=== PATIENT | female | born 1980 | race Caucasian/White ===

== ENCOUNTER 2018-06-20 16:38 | Emergency (ER) | payer BC ==
[2018-06-20 17:03] VITALS: TEMP 98.8; BMI 29.0
[2018-06-20] MEDS ORDERED: KETOROLAC TROMETHAMINE 30 MG/1 ML VIAL IVPUSH ONE (17:13)
[2018-06-20] MEDS ORDERED: PANTOPRAZOLE SODIUM 40 MG in SODIUM CHLORIDE 100 ML IVPB ONE (17:13)
--- NOTE | 2018-06-20 17:21 | PDOC ---
History of Present Illness - General Chief Complaint: Chest Pain Stated Complaint: PCP SENT/CHEST PAIN Time Seen by Provider: 06/20/18 17:11 History Source: Patient Exam Limitations: No Limitations - History of Present Illness Travel History: No Initial Comments: 06/20/18 17:13 37-year-old female presents to ED with complaints of epigastric burning and tightness/pressure Intermittently for the past 2 weeks worsened after meals which radiates to her midsternal region. Patient denies acidy taste to the back of her mouth and states went to her primary care doctor today in the city where she had EKG that showed inverted T waves in 2 leads. Patient denies back pain, palpitations, difficulty breathing, diaphoresis, or nausea. Patient states history of anemia secondary to heavy menstrual cycle. Patient also complaining of excessive belching without change in her bowel movements. Timing/Duration: reports: intermittent Quality: reports: moderate, burning (pressure) Abdominal Pain Onset Location: reports: epigastric Pain Radiation: reports: no radiation Activities at Onset: reports: none, eating Treatment Prior to Arrive: improves with: other Aggravating Factors: improves with: Eating Alleviating Factors: improves with: None Past History - Travel Traveled outside of the country in the last 30 days: No - Past Medical History Allergies/Adverse Reactions: Allergies Allergy/AdvReac Type Severity Reaction Status Date / Time banana Allergy Rash Verified 06/20/18 16:56 Home Medications: Ambulatory Orders Ranolazine [Ranexa] 500 mg PO BID 07/26/15 Pantoprazole Sodium [Protonix] 40 mg PO DAILY #30 tablet. 06/20/18 COPD: No Thyroid Disease: Yes Other medical history: LMP 06/02/18 - Immunization History Immunization Up to Date: Yes - Suicide/Smoking/Psychosocial Hx Smoking History: Never smoked Hx Alcohol Use: No Drug/Substance Use Hx: No Substance Use Type: None Patient Lives Alone: No Lives with/in: spouse/SO Review of Systems - Review of Systems Able to Perform ROS?: No Constitutional: No: Symptoms Reported HEENTM: No: Symptoms Reported Respiratory: No: Symptoms reported Cardiac (ROS): Yes: Chest Tightness ABD/GI: Yes: Indigestion : No: Symptoms Reported Musculoskeletal: No: Symptoms Reported Integumentary: No: Symptoms Reported Neurological: No: Symptoms reported *Physical Exam - Vital Signs Last Vital Signs Temp Pulse Resp BP Pulse Ox 98.8 F 71 16 103/64 99 06/20/18 16:40 06/20/18 16:40 06/20/18 16:40 06/20/18 16:40 06/20/18 16:40 - Physical Exam General Appearance: Yes: Nourished, Appropriately Dressed. No: Apparent Distress HEENT: positive: EOMI, Pharynx Normal Neck: positive: Supple Respiratory/Chest: positive: Lungs Clear, Normal Breath Sounds. negative: Respiratory Distress, Accessory Muscle Use Cardiovascular: positive: Regular Rhythm, Regular Rate. negative: Murmur Gastrointestinal/Abdominal: positive: Normal Bowel Sounds, Soft. negative: Distended, Guarding, Rebound, Tenderness Musculoskeletal: negative: CVA Tenderness Extremity: positive: Normal Capillary Refill Integumentary: positive: Normal Color, Warm, Moist Neurologic: positive: Motor Strength 5/5 (ambulatory) Heart Score/ECG Review - Electrocardiogram EKG: Normal - Age Age: </= 45 - Risk Factors Based on the list above the patient has:: No risk factors known - Troponin Troponin: </= normal limit - ECG Intrepretation Rhythm: Regular Rhythm (nsr at 80. no st elevation or depression.) ED Treatment Course - LABORATORY CBC & Chemistry Diagram: 06/20/18 17:45 06/20/18 17:45 Medical Decision Making - Medical Decision Making 06/20/18 17:31 Patient complains of epigastric pressure and burning radiating to her mid sternal region along with belching worsen after meals for the past week. Patient went to an urgent care clinic today EKG which noted inverted T waves in V2 and aVF. Patient EKG done here with flipped T waves noted in aVR P1 and V2. Patient is currently asymptomatic except for epigastric burning. Patient ordered for labs, cardiac profile, chest x-ray protonix, and Toradol 06/20/18 18:14 Laboratory Tests 06/20/18 06/20/18 17:45 17:45 WBC 6.0 Hgb 11.6 Hct 35.2 Plt Count 257 Absolute Neuts (auto) 3.3 Neutrophils % 55.6 Urine Ketones Trace H Urine Nitrite Negative Urine HCG, Qual Negative 06/20/18 18:25 Chest x-ray negative for acute findings. Patient states symptoms have resolved. Awaiting chemistry if negative patient will be discharged home with Protonix and recommendations to follow-up with GI 06/20/18 18:31 Laboratory Tests 06/20/18 17:45 Sodium 137 Potassium 3.7 Chloride 103 Carbon Dioxide 29 Anion Gap 5 L BUN 13 Creatinine 0.8 Random Glucose 95 Calcium 8.4 L Magnesium 1.9 Total Bilirubin 0.3 AST 17 ALT 18 Alkaline Phosphatase 56 Creatine Kinase 211 H Troponin I < 0.02 Lipase 225 *DC/Admit/Observation/Transfer Diagnosis at time of Disposition: Epigastric pain, Belching - Discharge Dispostion Disposition: HOME Condition at time of disposition: Improved - Prescriptions Prescriptions: Pantoprazole Sodium [Protonix] 40 mg PO DAILY #30 tablet.dr - Referrals Referrals: Sammy Rodriguez DO [Staff Physician] - - Patient Instructions Printed Discharge Instructions: How to Avoid Gas, DI for Epigastric Pain Additional Instructions: Please take medication as prescribed starting tomorrow since you were given your first dose here in the ER. Please avoid spicy greasy food and follow up with gastroenterology as recommended. - Post Discharge Activity
[2018-06-20] MEDS ORDERED: PANTOPRAZOLE SODIUM 40 MG/100 ML BAG IVPB ONE (17:53)
[2018-06-20] MEDS ORDERED: KETOROLAC TROMETHAMINE 30 MG/1 ML VIAL ONE (17:53)
[2018-06-20 18:01] LABS: BASO % 1.2 % (0-2.0); EOS % 0.7 % (0-4.5); HEMATOCRIT 35.2 % (32.4-45.2); HEMOGLOBIN 11.6 GM/dL (10.7-15.3); LYMPH % 36.8 % (8-40); MCH 27.6 pg (25.7-33.7); MEAN CELL VOLUME 83.6 fl (80-96); MEAN PLT VOLUME 7.8 fl (7.5-11.1); MONO % 5.7 % (3.8-10.2); NEUT % 55.6 % (42.8-82.8); PLATELET COUNT 257 K/MM3 (134-434); RBC 4.21 M/mm3 (3.60-5.2); RDW 14.4 % (11.6-15.6)
[2018-06-20 18:02] LABS: URINE APPEARANCE SLCLOUDY; URINE BILIRUBIN NEGATIVE (<2.0 mg/dL); URINE GLUCOSE (UA) NEGATIVE (NEGATIVE); URINE KETONE TRACE (NEGATIVE); URINE LEUK ESTERASE NEGATIVE (NEGATIVE); URINE NITRITE NEGATIVE (NEGATIVE); URINE PROTEIN NEGATIVE (NEGATIVE); URINE UROBILINOGEN NEGATIVE mg/dL (0.2-1.0)
[2018-06-20 18:04] LABS: HCG,QUALITATIVE URINE Negative
[2018-06-20 18:10] LABS: URINE COLOR YELLOW
[2018-06-20 18:30] LABS: ALBUMIN 3.8 g/dl (3.4-5.0); ALK PHOS 56 U/L (45-117); ANION GAP 5 MMOL/L (8-16); BILIRUBIN,TOTAL 0.3 mg/dL (0.2-1); BLOOD UREA NITROGEN 13 mg/dL (7-18); CALCIUM 8.4 mg/dL (8.5-10.1); CHLORIDE 103 mmol/L (98-107); CO2 29 mmol/L (21-32); CREATININE 0.8 mg/dL (0.55-1.3); GLUCOSE,RANDOM 95 mg/dL (74-106); LIPASE 225 U/L (73-393); MAGNESIUM 1.9 mg/dL (1.8-2.4); POTASSIUM 3.7 mmol/L (3.5-5.1); SGOT/AST 17 U/L (15-37); SGPT/ALT 18 U/L (13-61); SODIUM 137 mmol/L (136-145); TOT PROT 8.1 g/dl (6.4-8.2)
[2018-06-20 19:00] VITALS: BP 105/73; PULSE 66
--- NOTE | 2018-06-21 17:07 | EKG ---
Test Reason : Blood Pressure : / mmHG Vent. Rate : 080 BPM Atrial Rate : 080 BPM P-R Int : 184 ms QRS Dur : 072 ms QT Int : 382 ms P-R-T Axes : 059 022 041 degrees QTc Int : 440 ms NORMAL SINUS RHYTHM POSSIBLE LEFT ATRIAL ENLARGEMENT LOW VOLTAGE QRS BORDERLINE ECG WHEN COMPARED WITH ECG OF 26-JUL-2015 08:25, NO SIGNIFICANT CHANGE WAS FOUND Confirmed by MD Ace, Da ([id number] on 06/21/2018 5:07:12 PM Referred By: Confirmed By:Da Bello MD
== END 2018-06-20 18:35 | disposition home or self-care (01) ==
LOC: JER 16:38
PROC: 3E033GC Introduction of Other Therapeutic Substance into Peripheral Vein, Percutaneous Approach (ICD-10-PCS; principal; 2018-06-20)
PROC: 3E0333Z Introduction of Anti-inflammatory into Peripheral Vein, Percutaneous Approach (ICD-10-PCS; 2018-06-20)
DX: R07.89 Other chest pain (principal); R10.13 Epigastric pain; R14.2 Eructation
CPT/HCPCS: 36415; 71045-TC-FY; 80053; 81003; 82550; 82553; 83690; 83735; 84484; 84703; 85025; 93005; 93010; 99283-25

== ENCOUNTER 2020-12-16 16:01 | Emergency (ER) | payer OTHER ==
[2020-12-16 16:21] VITALS: BP 111/69; PULSE 76; TEMP 97.8; BMI 35.4
== END 2020-12-16 16:51 | disposition home or self-care (01) ==
LOC: JERFT 16:01 → JER 16:01 → JERFT 16:51
DX: S93.492A Sprain of other ligament of left ankle, initial encounter (principal)
CPT/HCPCS: 73610-TC-LT-FY; 73630-TC-LT; 99284-25

== ENCOUNTER 2021-05-14 20:59 | Emergency (ER) | payer OTHER ==
[2021-05-14 21:07] VITALS: BP 112/77; PULSE 65; TEMP 97.7; BMI 31.6
== END 2021-05-14 22:42 | disposition home or self-care (01) ==
LOC: JERFT 20:59
DX: T54.91XA Toxic effect of unspecified corrosive substance, accidental (unintentional), initial encounter (principal); Z77.29 Contact with and (suspected) exposure to other hazardous substances
CPT/HCPCS: 99281-25

== ENCOUNTER 2022-12-15 11:28 | Emergency (ER) | payer OTHER ==
[2022-12-15 11:33] VITALS: BP 118/76; PULSE 70; RESP 18; TEMP 97.9; BMI 33.3
[2022-12-15] MEDS ORDERED: METHOCARBAMOL 500 MG TABLET PO ONE (13:22)
[2022-12-15] MEDS ORDERED: METHOCARBAMOL 500 MG TABLET ONE (13:24)
== END 2022-12-15 13:45 | disposition home or self-care (01) ==
LOC: JERFT 11:28
DX: M43.6 Torticollis (principal)
CPT/HCPCS: 99283-25

== ENCOUNTER 2023-07-11 05:03 | Inpatient (IN) | payer OTHER ==
[2023-07-11 05:13] VITALS: BMI 34.3
[2023-07-11] MEDS ORDERED: FAMOTIDINE 20 MG/50 ML IVPB 20 MG/50 ML MG IVPB ONE (05:26)
[2023-07-11] MEDS ORDERED: SODIUM CHLORIDE 0.9% 500 ML INFUS.BAG IV ONE (05:26)
[2023-07-11] MEDS ORDERED: MAG HYDROX/AL HYDROX/SIMETH 30 ML UNIT-DOSE CUP PO ONE (05:26)
[2023-07-11] MEDS ORDERED: FAMOTIDINE 10 MG/ML VIAL IVPB ONE (05:33)
[2023-07-11] MEDS ORDERED: MAG HYDROX/AL HYDROX/SIMETH 30 ML UNIT-DOSE CUP ONE (05:33)
[2023-07-11] MEDS ORDERED: ONDANSETRON 4 MG/2 ML VIAL IVPB ONE (05:42)
[2023-07-11] MEDS ORDERED: ONDANSETRON 4 MG/2 ML VIAL ONE ×2 (05:43→13:08)
[2023-07-11 06:35] LABS: BASO % 0.5 % (0-2.0); EOS % 4.1 % (0-4.5); HEMATOCRIT 36.4 % (32.4-45.2); HEMOGLOBIN 11.7 GM/dL (10.7-15.3); LYMPH % 46.5 % (8-40); MCH 26.7 pg (25.7-33.7); MEAN CELL VOLUME 83.5 fl (80-96); MEAN PLT VOLUME 8.1 fl (7.5-11.1); NEUT % 40.9 % (42.8-82.8); PLATELET COUNT 283 10^3/uL (134-434); RBC 4.36 M/mm3 (3.60-5.2); RDW 14.7 % (11.6-15.6); WHITE BLOOD COUNT 5.7 K/mm3 (4.0-10.0)
[2023-07-11 06:43] LABS: POTASSIUM 3.8 mmol/L (3.5-5.1)
[2023-07-11 06:44] LABS: CALCIUM 8.5 mg/dL (8.5-10.1)
[2023-07-11] MEDS ORDERED: morphine SULFATE 4 MG/ML VIAL IVPUSH ONE (06:44)
[2023-07-11 06:45] LABS: ALBUMIN 3.5 g/dl (3.4-5.0); BLOOD UREA NITROGEN 11.1 mg/dL (7-18)
[2023-07-11 06:49] LABS: CREATININE 0.8 mg/dL (0.55-1.3)
[2023-07-11 06:50] LABS: BILIRUBIN,TOTAL 0.1 mg/dL (0.2-1)
[2023-07-11] MEDS ORDERED: KETOROLAC TROMETHAMINE 15 MG/ML VIAL IVPUSH ONE (07:26)
[2023-07-11] MEDS ORDERED: morphine SULFATE 4 MG/ML VIAL ONE ×2 (07:27→12:59)
[2023-07-11] MEDS ORDERED: KETOROLAC TROMETHAMINE 15 MG/ML VIAL ONE (07:27)
[2023-07-11 09:25] LABS: PH,URINE 7.5 (5.0-8.0); URINE APPEARANCE CLEAR; URINE BILIRUBIN NEGATIVE (NEGATIVE); URINE COLOR YELLOW; URINE GLUCOSE (UA) NEGATIVE (NEGATIVE); URINE KETONE NEGATIVE (NEGATIVE); URINE LEUK ESTERASE NEGATIVE (NEGATIVE); URINE NITRITE NEGATIVE (NEGATIVE); URINE PROTEIN NEGATIVE (NEGATIVE); URINE UROBILINOGEN 0.2 mg/dL (0.2-1.0)
[2023-07-11] MEDS ORDERED: morphine CARPU-JECT 2 MG/1 ML DISP.SYRIN IVPUSH ONE (10:06)
[2023-07-11] MEDS ORDERED: morphine SULFATE 4 MG/ML VIAL IVPUSH PRN (11:00)
[2023-07-11] MEDS ORDERED: ONDANSETRON 4 MG/2 ML VIAL IVPUSH PRN (11:03)
[2023-07-11] MEDS: DEXTROSE 5%-LACTATED RINGERS 1,000 ML IV SCH (11:32)
[2023-07-11] MEDS ORDERED: METOCLOPRAMIDE HCL INJECTION 10 MG/2 ML VIAL IVPUSH ONE (11:37)
[2023-07-11] MEDS ORDERED: METOCLOPRAMIDE HCL INJECTION 10 MG/2 ML VIAL ONE (11:46)
[2023-07-11] MEDS: ACETAMINOPHEN 1000 MG/100 ML BAG IVPB SCH (16:06)
[2023-07-11] MEDS: morphine SULFATE 4 MG/ML VIAL IVPUSH PRN (20:28)
[2023-07-12] MEDS: ACETAMINOPHEN 1000 MG/100 ML BAG IVPB SCH ×2 (00:04→05:59)
[2023-07-12] MEDS: DEXTROSE 5%-LACTATED RINGERS 1,000 ML IV SCH ×2 (05:53→11:24)
[2023-07-12 08:20] LABS: BASO % 0.4 % (0-2.0); EOS % 0.2 % (0-4.5); HEMATOCRIT 35.6 % (32.4-45.2); HEMOGLOBIN 11.7 GM/dL (10.7-15.3); LYMPH % 15.3 % (8-40); MCH 27.1 pg (25.7-33.7); MCHC 32.8 g/dl (32.0-36.0); MEAN CELL VOLUME 82.8 fl (80-96); MEAN PLT VOLUME 8.1 fl (7.5-11.1); NEUT % 76.1 % (42.8-82.8); PLATELET COUNT 301 10^3/uL (134-434); RDW 14.7 % (11.6-15.6); WHITE BLOOD COUNT 9.6 K/mm3 (4.0-10.0)
[2023-07-12 08:26] LABS: POTASSIUM 3.8 mmol/L (3.5-5.1)
[2023-07-12 08:36] LABS: CALCIUM 8.4 mg/dL (8.5-10.1)
[2023-07-12 08:38] LABS: ALBUMIN 3.4 g/dl (3.4-5.0); BLOOD UREA NITROGEN 7.5 mg/dL (7-18); MAGNESIUM 1.7 mg/dL (1.8-2.4)
[2023-07-12 08:39] LABS: PHOSPHOROUS 3.1 mg/dL (2.5-4.9)
[2023-07-12 08:40] LABS: CREATININE 0.8 mg/dL (0.55-1.3)
[2023-07-12 08:41] LABS: ALBUMIN 3.4 g/dl (3.4-5.0); BILIRUBIN,TOTAL 0.5 mg/dL (0.2-1); TOT PROT 7.9 g/dl (6.4-8.2)
[2023-07-12 08:45] LABS: BILIRUBIN,DIRECT 0.2 mg/dL (0.0-0.2)
[2023-07-12 08:46] LABS: BILIRUBIN,TOTAL 0.6 mg/dL (0.2-1); TOT PROT 7.8 g/dl (6.4-8.2)
[2023-07-12] MEDS: morphine SULFATE 4 MG/ML VIAL IVPUSH PRN (09:25)
[2023-07-12] MEDS ORDERED: ENOXAPARIN NA (PORCINE) 40 MG/0.4 ML DISP.SYRIN SQ SCH (10:00)
[2023-07-12] MEDS: PANTOPRAZOLE SODIUM 40 MG VIAL IVPUSH SCH (11:23)
[2023-07-12] MEDS ORDERED: MAGNESIUM SULF 50% (8.12 MEQ/2 ML-1 GM VIAL) IVPB ONE (15:08)
[2023-07-12] MEDS: ACETAMINOPHEN 1000 MG/100 ML BAG IVPB PRN (17:24)
[2023-07-12] MEDS: PIPERACILLIN/TAZOB 3.375 GM 3.375 GM in DEXTROSE 5%-WATER - 50 ML IVPB SCH (19:42)
[2023-07-13] MEDS: morphine SULFATE 4 MG/ML VIAL IVPUSH PRN (00:05)
[2023-07-13] MEDS: PIPERACILLIN/TAZOB 3.375 GM 3.375 GM in DEXTROSE 5%-WATER - 50 ML IVPB SCH ×3 (01:59→17:33)
[2023-07-13] MEDS: ACETAMINOPHEN 1000 MG/100 ML BAG IVPB PRN (06:00)
[2023-07-13] MEDS: PANTOPRAZOLE SODIUM 40 MG VIAL IVPUSH SCH (09:32)
[2023-07-13 10:17] LABS: BASO % 0.3 % (0-2.0); EOS % 0.7 % (0-4.5); HEMATOCRIT 33.9 % (32.4-45.2); LYMPH % 17.4 % (8-40); MCH 26.9 pg (25.7-33.7); MCHC 32.4 g/dl (32.0-36.0); MEAN PLT VOLUME 7.8 fl (7.5-11.1); MONO % 8.4 % (3.8-10.2); NEUT % 73.2 % (42.8-82.8); PLATELET COUNT 264 10^3/uL (134-434); RBC 4.08 M/mm3 (3.60-5.2); RDW 14.6 % (11.6-15.6)
[2023-07-13 10:22] LABS: INR 1.31 (0.83-1.09); PROTHROMBIN TIME (PATIENT) 15.2 SEC (9.7-13.0)
[2023-07-13 10:40] LABS: POTASSIUM 3.7 mmol/L (3.5-5.1)
[2023-07-13 10:49] LABS: ALBUMIN 2.9 g/dl (3.4-5.0); BLOOD UREA NITROGEN 6.6 mg/dL (7-18); MAGNESIUM 2.3 mg/dL (1.8-2.4)
[2023-07-13 10:53] LABS: CREATININE 0.8 mg/dL (0.55-1.3)
[2023-07-13 10:54] LABS: BILIRUBIN,TOTAL 0.5 mg/dL (0.2-1); TOT PROT 7.1 g/dl (6.4-8.2)
[2023-07-13] MEDS ORDERED: BUPIVACAINE HCL/PF 0.25% (2.5MG/ML) 10 ML VIAL ONE (11:15)
[2023-07-13] MEDS ORDERED: ONDANSETRON 4 MG/2 ML VIAL IVPUSH PRN ×3 (11:28→13:27)
[2023-07-13] MEDS ORDERED: PROMETHAZINE HCL 25 MG/1 ML VIAL IVPB PRN ×2 (11:28→13:27)
[2023-07-13] MEDS ORDERED: LACTATED RINGERS SOLUTION 1,000 ML IV SCH (11:30)
[2023-07-13] MEDS ORDERED: FENTANYL CITRATE/PF 50 MCG/ML VIAL ONE ×2 (11:36→13:43)
[2023-07-13] MEDS ORDERED: MIDAZOLAM HCL 2 MG/2 ML SINGLE DOSE VIAL ONE (11:36)
[2023-07-13] MEDS ORDERED: ROCURONIUM BROMIDE 50 MG/5 ML SYRINGE ONE (11:36)
[2023-07-13] MEDS ORDERED: PROPOFOL 20 ML ONE (11:36)
[2023-07-13] MEDS ORDERED: LIDOCAINE HCL/PF 2% SDV 5ML VIAL ONE (11:44)
[2023-07-13] MEDS ORDERED: DEXAMETHASONE SOD PHOSPHATE 4 MG/1 ML VIAL ONE (11:59)
[2023-07-13] MEDS ORDERED: ONDANSETRON 4 MG/2 ML VIAL ONE (11:59)
[2023-07-13] MEDS ORDERED: BUPIVACAINE HCL/PF 0.25% (2.5MG/ML) 10 ML VIAL IJ ONE (12:09)
[2023-07-13] MEDS ORDERED: KETOROLAC TROMETHAMINE 30 MG/1 ML VIAL ONE (12:53)
[2023-07-13] MEDS ORDERED: SUGAMMADEX SODIUM 200 MG/2 ML VIAL ONE ×2 (12:54)
[2023-07-13] MEDS ORDERED: SODIUM CHLORIDE 1,000 ML IV SCH (13:30)
[2023-07-13] MEDS ORDERED: KETOROLAC TROMETHAMINE 15 MG/ML VIAL IVPUSH PRN (19:00)
[2023-07-13] MEDS: ACETAMINOPHEN 1000 MG/100 ML BAG IVPB SCH (19:48)
[2023-07-13] MEDS: DEXTROSE 5%-LACTATED RINGERS 1,000 ML IV SCH (23:21)
[2023-07-14] MEDS: ACETAMINOPHEN 1000 MG/100 ML BAG IVPB SCH ×3 (01:41→14:09)
[2023-07-14] MEDS: PIPERACILLIN/TAZOB 3.375 GM 3.375 GM in DEXTROSE 5%-WATER - 50 ML IVPB SCH ×2 (02:53→10:04)
[2023-07-14] MEDS: oxyCODONE HCL 5 MG TABLET PO PRN ×2 (05:48→12:37)
[2023-07-14 09:38] LABS: BASO % 0.3 % (0-2.0); EOS % 0.6 % (0-4.5); HEMATOCRIT 30.8 % (32.4-45.2); HEMOGLOBIN 10.3 GM/dL (10.7-15.3); LYMPH % 21.4 % (8-40); MCH 27.2 pg (25.7-33.7); MCHC 33.3 g/dl (32.0-36.0); MEAN CELL VOLUME 81.7 fl (80-96); NEUT % 70.7 % (42.8-82.8); PLATELET COUNT 265 10^3/uL (134-434); RBC 3.77 M/mm3 (3.60-5.2); RDW 14.7 % (11.6-15.6); WHITE BLOOD COUNT 9.8 K/mm3 (4.0-10.0)
[2023-07-14] MEDS ORDERED: PANTOPRAZOLE SODIUM 40 MG VIAL IVPUSH SCH (10:00)
[2023-07-14] MEDS ORDERED: ENOXAPARIN NA (PORCINE) 40 MG/0.4 ML DISP.SYRIN SQ SCH (10:00)
[2023-07-14 10:01] LABS: POTASSIUM 3.5 mmol/L (3.5-5.1)
[2023-07-14 10:08] LABS: ALBUMIN 2.6 g/dl (3.4-5.0); BLOOD UREA NITROGEN 10.1 mg/dL (7-18); CALCIUM 7.6 mg/dL (8.5-10.1); MAGNESIUM 2.2 mg/dL (1.8-2.4)
[2023-07-14] MEDS ORDERED: SIMETHICONE 80 MG TAB.CHEW (FP) PO PRN (10:08)
[2023-07-14 10:09] LABS: CREATININE 0.7 mg/dL (0.55-1.3)
[2023-07-14 10:10] LABS: BILIRUBIN,TOTAL 0.3 mg/dL (0.2-1); TOT PROT 6.7 g/dl (6.4-8.2)
[2023-07-14 14:48] VITALS: BP 122/79; PULSE 69; RESP 20; TEMP 98.6
[2023-07-14] MEDS ORDERED: AMOX TR/POT CLAV 875MG/125MG TABLETS (FP) PO SCH (17:30)
== END 2023-07-14 20:52 | disposition home or self-care (01) | DRG 263 ==
LOC: JER 05:03 → JERBED 10:24 → OBSVTOIN 11:01 → J8W 14:44
PROVIDERS: ADMIT Internal Medicine; ATTEND Nurse Practitioner Family
PROC: 0DNW4ZZ Release Peritoneum, Percutaneous Endoscopic Approach (ICD-10-PCS; 2023-07-13)
PROC: 0FT44ZZ Resection of Gallbladder, Percutaneous Endoscopic Approach (ICD-10-PCS; principal; 2023-07-13 11:30)
DX: K80.00 Calculus of gallbladder with acute cholecystitis without obstruction (principal); K82.A1 Gangrene of gallbladder in cholecystitis; K66.0 Peritoneal adhesions (postprocedural) (postinfection); E03.9 Hypothyroidism, unspecified; R50.9 Fever, unspecified; E66.9 Obesity, unspecified; Z68.35 Body mass index [BMI] 35.0-35.9, adult
CPT/HCPCS: 36415; 74181-TC; 76705-TC; 80053; 80076; 81003; 83690; 83735; 84100; 84484; 84703; 85025; 85610; 86850; 86900; 86901; 87040; 87086; 88304-TC; 93005; 93010; 94760; 99285-25; G0378

== ENCOUNTER 2023-08-06 17:58 | Emergency (ER) | payer OTHER ==
[2023-08-06 18:15] VITALS: BP 98/60; PULSE 82; RESP 18; TEMP 98.3; BMI 34.1
[2023-08-06] MEDS ORDERED: ONDANSETRON 4 MG/2 ML VIAL IVPUSH ONE (18:32)
[2023-08-06] MEDS ORDERED: SODIUM CHLORIDE 0.9% 500 ML INFUS.BAG IV ONE (18:33)
[2023-08-06] MEDS ORDERED: FAMOTIDINE 20 MG/50 ML IVPB 20 MG/50 ML MG IVPB ONE ×2 (18:41→18:50)
[2023-08-06] MEDS ORDERED: MAG HYDROX/AL HYDROX/SIMETH 30 ML UNIT-DOSE CUP PO ONE (18:41)
[2023-08-06] MEDS ORDERED: ACETAMINOPHEN 1000 MG/100 ML BAG IVPB ONE (18:41)
[2023-08-06] MEDS ORDERED: ACETAMINOPHEN INJECTION 100 ML IVPB ONE (18:50)
[2023-08-06] MEDS ORDERED: ONDANSETRON 4 MG/2 ML VIAL ONE (18:50)
[2023-08-06] MEDS ORDERED: MAG HYDROX/AL HYDROX/SIMETH 30 ML UNIT-DOSE CUP ONE (18:50)
[2023-08-06 19:06] LABS: BASO % 1.2 % (0-2.0); EOS % 2.1 % (0-4.5); HEMATOCRIT 36.4 % (32.4-45.2); HEMOGLOBIN 11.4 GM/dL (10.7-15.3); LYMPH % 31.9 % (8-40); MCH 26.4 pg (25.7-33.7); MCHC 31.3 g/dl (32.0-36.0); MEAN CELL VOLUME 84.2 fl (80-96); MEAN PLT VOLUME 8.2 fl (7.5-11.1); MONO % 7.7 % (3.8-10.2); NEUT % 57.1 % (42.8-82.8); PLATELET COUNT 278 10^3/uL (134-434); RBC 4.33 M/mm3 (3.60-5.2); RDW 15.3 % (11.6-15.6); WHITE BLOOD COUNT 4.8 K/mm3 (4.0-10.0)
[2023-08-06 19:22] LABS: CALCIUM 8.8 mg/dL (8.5-10.1)
[2023-08-06 19:23] LABS: ALBUMIN 3.8 g/dl (3.4-5.0); BLOOD UREA NITROGEN 8.1 mg/dL (7-18)
[2023-08-06 19:26] LABS: CREATININE 0.9 mg/dL (0.55-1.3)
[2023-08-06 19:27] LABS: BILIRUBIN,TOTAL 0.3 mg/dL (0.2-1); TOT PROT 8.2 g/dl (6.4-8.2)
== END 2023-08-06 21:20 | disposition home or self-care (01) ==
LOC: JER 17:58
PROC: 3E033GC Introduction of Other Therapeutic Substance into Peripheral Vein, Percutaneous Approach (ICD-10-PCS; principal; 2023-08-06)
PROC: 3E033GC Introduction of Other Therapeutic Substance into Peripheral Vein, Percutaneous Approach (ICD-10-PCS; 2023-08-06)
PROC: 3E033NZ Introduction of Analgesics, Hypnotics, Sedatives into Peripheral Vein, Percutaneous Approach (ICD-10-PCS; 2023-08-06)
DX: R11.2 Nausea with vomiting, unspecified (principal); R51.9 Headache, unspecified; R68.83 Chills (without fever); R42 Dizziness and giddiness; R10.10 Upper abdominal pain, unspecified
CPT/HCPCS: 36415; 74176-TC; 80053; 83605; 83690; 84703; 85025; 99284-25